=== PATIENT | male | born 1945 | race Caucasian/White ===

== ENCOUNTER 2022-08-26 09:13 | Emergency (ER) | payer OTHER ==
[~2022-08-26] VITALS: Ht 172.7 cm; Wt 86.2 kg
--- NOTE | 2022-08-26 09:26 | NUR ---
TO ER BED 7, BILATERAL ANKLE/LEG SWELLING,ARRIVED A WEEK AGO FROM AFTER AN 11 HR FLIGHT, BREATHING EVEN AND NON LABORED, CONNECTED TO MONITOR, AWAITING MD PAULINO
[2022-08-26 10:50] LABS: BASOPHILS % (AUTO) 0.3 % (0.0-2.0); HEMATOCRIT 48 % (39-51); HEMOGLOBIN 15.9 g/dL (13.5-17.5); LYMPHOCYTES # (AUTO) 1.7 K/uL (0.8-4.8); LYMPHOCYTES % (AUTO) 25.6 % (20.0-44.0); MEAN CORPUSCULAR HGB CONC 33 g/dl (31.0-36.0); MEAN CORPUSCULAR VOLUME 94 fL (80-96); MONOCYTES # (AUTO) 0.9 K/uL (0.1-1.30); MONOCYTES % (AUTO) 14.1 % (2.0-12.0); NEUTROPHILS # (AUTO) 3.9 K/uL (1.8-8.9); PLATELET COUNT (AUTO) 196 K/uL (150-450); RED BLOOD CELL COUNT(AUTO) 5.07 MIL/uL (4.5-6.0); WHITE BLOOD COUNT (AUTO) 6.6 K/uL (4.3-11.0)
--- NOTE | 2022-08-26 11:07 | NUR ---
NEGATIVE DVT PER US MD KRISTINA AWARE
[2022-08-26 11:12] LABS: CALCIUM, SERUM 8.9 mg/dL (8.5-10.1); CARBON DIOXIDE 31 mmol/L (21-32); CHLORIDE 106 mmol/L (98-107); CREATININE 1.1 mg/dL (0.6-1.3); GLUCOSE 118 mg/dL (74-106); POTASSIUM 4.1 mmol/L (3.5-5.1); SODIUM SERUM 141 mmol/L (136-145); UREA NITROGEN, BLOOD 18 mg/dL (7-18)
[2022-08-26 11:15] LABS: ALANINE AMINOTRANSFERASE 37 U/L (12-78); ALBUMIN 3.6 g/dL (3.4-5.0); ALKALINE PHOSPHATASE 76 U/L (46-116); ASPARTATE AMINOTRANSFERASE 31 U/L (15-37); BILIRUBIN,DIRECT 0.1 mg/dL (0.0-0.2); BILIRUBIN,TOTAL 0.3 mg/dL (0.2-1.0); TOTAL PROTEIN, SERUM 7.1 g/dL (6.4-8.2)
[2022-08-26] MEDS ORDERED: FURO-145 PO (12:57)
--- NOTE | 2022-08-26 13:10 | NUR ---
Patient discharged to home in stable condition. Written and verbal after care instructions given. Patient verbalizes understanding of instruction.
[2022-08-26 13:40] VITALS: BP 142/90
== END 2022-08-26 13:41 | disposition home or self-care (01) ==
LOC: ER 09:20
DX: R60.0 Localized edema (principal); I45.10 Unspecified right bundle-branch block; I10 Essential (primary) hypertension; M10.9 Gout, unspecified; E78.00 Pure hypercholesterolemia, unspecified
CPT/HCPCS: 36415; 71045-TC; 80048-TC; 80076-TC; 84484-TC; 85025-TC; 93970-TC

== ENCOUNTER 2022-09-02 09:22 | Emergency (ER) | payer OTHER ==
[~2022-09-02] VITALS: Ht 170.2 cm; Wt 86.2 kg
[~2022-09-02 09:22] MED LIST: FURO-145 PO
[2022-09-02 09:41] VITALS: BP 145/76
--- NOTE | 2022-09-02 10:01 | NUR ---
Patient discharged to home in stable condition. Written and verbal after care instructions given. Patient verbalizes understanding of instruction.
== END 2022-09-02 10:01 | disposition home or self-care (01) ==
LOC: ER 09:27
DX: Z00.8 Encounter for other general examination (principal); I10 Essential (primary) hypertension; M10.9 Gout, unspecified; Z79.899 Other long term (current) drug therapy